=== PATIENT | male | born 1995 | race African-American/Black ===

== ENCOUNTER 2017-07-22 13:41 | Emergency (ER) | payer OTHER ==
[2017-07-22 14:40] LABS: ADD MAN DIFF? NO
[2017-07-22 14:53] LABS: BASO % 0 % (0-3); EOS # 0.2 x10^3/uL (0.0-0.7); EOS % 3 % (0-3); HEMATOCRIT 41.8 % (39.0-53.0); HEMOGLOBIN 14.4 g/dL (13.0-17.5); LYMPH # 1.7 x10^3/uL (1.0-4.8); LYMPH % 33 % (24-48); MEAN CORPUSCULAR HEMOGLOBIN 30 pg (25-35); MEAN CORPUSCULAR HGB CONC 34 g/dL (31-37); MEAN CORPUSCULAR VOLUME 87 fL (79-100); MONO # 0.7 x10^3/uL (0.0-1.1); MONO % 14 % (0-9); NEUT # 2.4 x10^3uL (1.8-7.7); NEUT % 49 % (31-73); PLATELET COUNT 238 x10^3/uL (140-400); RED BLOOD COUNT 4.82 x10^6/uL (4.30-5.70); RED CELL DISTRIBUTION WIDTH 13.3 % (11.5-14.5)
[2017-07-22 14:57] LABS: ANION GAP 8 (6-14); BLOOD UREA NITROGEN 12 mg/dL (8-26); CARBON DIOXIDE 27 mmol/L (21-32); CHLORIDE 106 mmol/L (98-107); GFR 113.1; GLUCOSE 92 mg/dL (70-99); POTASSIUM 4.3 mmol/L (3.5-5.1); SODIUM 141 mmol/L (136-145)
[2017-07-22] MEDS ORDERED: CONTRAST GIVEN MC (15:00)
[2017-07-22 15:02] LABS: ALBUMIN 3.9 g/dL (3.4-5.0); ALK PHOS 76 U/L (46-116); ALT (SGPT) 59 U/L (16-63); AST (SGOT) 19 U/L (15-37); DIRECT BILIRUBIN 0.1 mg/dL (0.0-0.2); LIPASE 342 U/L (73-393); TOTAL BILIRUBIN 0.4 mg/dL (0.2-1.0); TOTAL PROTEIN 7.8 g/dL (6.4-8.2)
[2017-07-22 15:08] LABS: CKMB INDEX 0.2 % (0-4); CKMB MASS 0.7 ng/mL (0.0-3.6); CREATINE KINASE 296 U/L (39-308)
[2017-07-22 15:10] LABS: TROPONINI < 0.017 ng/mL (0.000-0.055)
[2017-07-22] MEDS: LIDO:MAALOX:DONNATAL 1:1:1 15 ML SINGLE DOSE SWSW (15:18)
[2017-07-22] MEDS: 0.9 % SODIUM CHLORIDE 10 ML DISP.SYRIN. IV (15:19)
[2017-07-22] MEDS: ONDANSETRON PF 4 MG/2 ML VIAL. IV (15:19)
[2017-07-22] MEDS: IV NORMAL SALINE 1000ML BAG 1,000 ML IV (15:20)
[2017-07-22] MEDS: IOHEXOL 300 MG/ML 100ML VIAL. IV (15:35)
[2017-07-22 16:51] LABS: BILIRUBIN,URINE NEGATIVE (NEG); CLARITY,URINE CLEAR; COLOR,URINE YELLOW; GLUCOSE,URINE NEGATIVE (NEG); NITRITE,URINE NEGATIVE (NEG); PROTEIN,URINE NEGATIVE (NEG-TRACE); UROBILINOGEN,URINE 0.2 mg/dL (0.2 mg/dL)
[2017-07-22 17:03] LABS: AMPHETAMINE/METHAMPHETAMINE NEG (NEG); BARBITURATES NEG (NEG); BENZODIAZEPINES NEG (NEG); CANNABINOIDS NEG (NEG); COCAINE NEG (NEG); ETHANOL, URINE NEG (NEG); METHADONE NEG (NEG); OPIATES NEG (NEG); PHENCYCLIDINE NEG (NEG)
[2017-07-22 17:16] LABS: BACTERIA,URINE 0 /HPF (0-FEW); RBC,URINE 0 /HPF (0-2); SQUAMOUS EPITHELIAL CELL,UR OCC /LPF; WBC,URINE OCC /HPF (0-4)
== END 2017-07-22 17:23 | disposition home or self-care (01) ==
LOC: ER 13:41
DX: R10.13 Epigastric pain (principal); R11.2 Nausea with vomiting, unspecified; R19.7 Diarrhea, unspecified; J45.909 Unspecified asthma, uncomplicated; K58.9 Irritable bowel syndrome, unspecified
CPT/HCPCS: 36415; 74177; 80048; 80076; 80307; 81001; 82553; 83690; 84484; 85025; 93005; 96361; 96374; 99285-25; J2405; J7030; Q9967